=== PATIENT | female | born 1945 | race Caucasian/White ===

== ENCOUNTER → 2017-10-20 | Outpatient (CLI) | payer OTHER | LOC: FIMAGING 15:33 | PROVIDERS: ATTEND Internal Medicine | DX: Z12.31 Encounter for screening mammogram for malignant neoplasm of breast (principal) ==

== ENCOUNTER 2018-01-28 10:12 | Emergency (ER) | payer OTHER ==
--- NOTE | 2018-01-28 10:30 | CPEKG ---
Heart Rate: 159 RR Interval: 377 QRSD Interval: 66 QT Interval: 284 QTC Interval: 463 QRS [place]: 21 T Wave [place]: 38 EKG Severity - ABNORMAL ECG - EKG Impression: ATRIAL FIBRILLATION WITH RAPID V-RATE Electronically Signed By: Theresa Romero 28-Jan-2018 15:02:02
[2018-01-28] MEDS ORDERED: NS 500 ML IV ONE (10:38)
[2018-01-28] MEDS ORDERED: ASPIRIN 81 MG CHEWABLE TAB PO ONE (10:38)
--- NOTE | 2018-01-28 10:42 | EDPHY ---
H & P Time Seen by Provider: 01/28/18 10:31 HPI/ROS: CHIEF COMPLAINT: Lightheaded HISTORY OF PRESENT ILLNESS: Patient is a 72-year-old female who presents emergency department with fairly sudden onset of lightheadedness approximately 1.5 hr ago. The patient states she is walking down the hallway when she felt lightheaded. She felt as though she might faint. She describes it as"woozy. "She denies any specific dizziness although this is what she complained about in triage. No vertigo. No chest pain or shortness of breath. No abdominal pain. No nausea or vomiting. No focal weakness or numbness. No recent over- the-counter medications. She had 1 glass of wine last evening. REVIEW OF SYSTEMS: My complete review of systems is negative except as mentioned in the HPI. Past Medical/Surgical History: Includes foot surgery Social history: The patient does not smoke. She uses alcohol occasionally. Smoking Status: Never smoked Physical Exam: Vitals noted GENERAL: Well-appearing, in no acute distress, alert. HEENT: Eyes normal to inspection, normal pharynx, no signs of dehydration. NECK: No thyromegaly, no lymphadenopathy, supple. RESPIRATORY: Clear to auscultation bilaterally, no rales, rhonchi or wheezing. CVS: Regular tachycardia, no rubs, murmurs, or gallops. ABDOMEN: Soft, nontender, nondistended, no organomegaly. BACK: Normal to inspection, no CVA tenderness. SKIN: Normal color, no rash, warm, dry. No pallor. EXTREMITIES: No pedal edema, no calf tenderness, no Homans sign or cords, no joint swelling. NEURO/PSYCH: Alert and oriented x3, normal mood and affect, normal motor sensory exam. Constitutional: Initial Vital Signs Temperature (C) 36.6 C 01/28/18 10:18 Heart Rate 101 H 01/28/18 10:18 Respiratory Rate 16 01/28/18 10:18 Blood Pressure 98/80 L 01/28/18 10:18 O2 Sat (%) 93 01/28/18 10:18 O2 Delivery Mode Room Air Allergies/Adverse Reactions: iodine Allergy (Intermediate, Verified 01/28/18 10:18) Home Medications: Medication Instructions Recorded Apixaban [Eliquis] 5 mg PO BID 30 Days tab 01/28/18 Aspirin 01/28/18 Metoprolol Tartrate [Lopressor 25 25 mg PO BID 30 Days tab 01/28/18 mg (*)] Tums Ultra 01/28/18 Vitamin D3 01/28/18 Medical Decision Making - Diagnostics Imaging Results: Imaging Impressions Chest X-Ray 01/28/18 10:38 Impression: 1. No active cardiopulmonary disease seen. ED Course/Re-evaluation: In the emergency department I discussed possible etiologies patient. I reviewed her typewriter tester. She was noted to have an irregular complex tachycardia. The laboratory studies, EKG and aspirin were ordered. EKG showed atrial fibrillation at 159. Normal axis. No ST elevation. While I was in the room with the patient she converted back to sinus rhythm on the monitor. I ordered a repeat EKG. I discussed this with the patient. Repeat EKG: Sinus rhythm at 71. No ST or T-wave abnormality. CBC, chemistry and troponin were negative. TSH is pending 11 14: I discussed the case with Dr. Butts from Cardiology. He will come to the emergency department to evaluate the patient. Dr. Butts was in the emergency department to evaluate the patient. Post evaluation he recommended the patient be placed on Eliquis 5 mg orally twice daily. He recommended I write a 30 day prescription for this. He also recommended metoprolol tartrate 25 mg twice daily. He also recommended a 30 day prescription of this. Patient will be contacted by Dr. Butts is office for further treatment and evaluation. I discussed this plan with the patient. I answered all her questions. She felt comfortable. She is given warnings prior to leaving. Differential Diagnosis: My differential includes but is not limited to atrial fibrillation, atrial flutter, SVT, V-tach, electrolyte abnormality, sugar abnormality, dehydration, thyroid disease - Data Points Laboratory Results: Laboratory Results 01/28/18 10:35 01/28/18 10:35 01/28/18 01/28/18 10:35 10:35 WBC 5.65 10^3/uL 10^3/uL (3.80-9.50) RBC 4.74 10^6/uL 10^6/uL (4.18-5.33) Hgb 14.8 g/dL g/dL (12.6-16.3) Hct 44.2 % % (38.0-47.0) MCV 93.2 fL fL (81.5-99.8) MCH 31.2 pg pg (27.9-34.1) MCHC 33.5 g/dL g/dL (32.4-36.7) RDW 13.2 % % (11.5-15.2) Plt Count 237 10^3/uL 10^3/uL (150-400) MPV 10.6 fL fL (8.7-11.7) Neut % (Auto) 52.4 % % (39.3-74.2) Lymph % (Auto) 33.8 % % (15.0-45.0) [place] % (Auto) 10.8 % % (4.5-13.0) Eos % (Auto) 1.9 % % (0.6-7.6) Baso % (Auto) 0.9 % % (0.3-1.7) Nucleat RBC Rel Count 0.0 % % (0.0-0.2) Absolute Neuts (auto) 2.96 10^3/uL 10^3/uL (1.70-6.50) Absolute Lymphs (auto) 1.91 10^3/uL 10^3/uL (1.00-3.00) Absolute Monos (auto) 0.61 10^3/uL 10^3/uL (0.30-0.80) Absolute Eos (auto) 0.11 10^3/uL 10^3/uL (0.03-0.40) Absolute Basos (auto) 0.05 10^3/uL 10^3/uL (0.02-0.10) Absolute Nucleated RBC 0.00 10^3/uL 10^3/uL (0-0.01) Immature Gran % 0.2 % % (0.0-1.1) Immature Gran # 0.01 10^3/uL 10^3/uL (0.00-0.10) Sodium 142 mEq/L mEq/L (135-145) Potassium 4.3 mEq/L mEq/L (3.5-5.2) Chloride 105 mEq/L mEq/L (97-110) Carbon Dioxide 25 mEq/l mEq/l (22-31) Anion Gap 12 mEq/L mEq/L (8-16) BUN 16 mg/dL mg/dL (7-23) Creatinine 1.0 mg/dL mg/dL (0.6-1.0) Estimated GFR 54 Glucose 105 mg/dL H mg/dL (70-100) Calcium 9.5 mg/dL mg/dL (8.5-10.4) Troponin I < 0.012 ng/mL ng/mL (0.000-0.034) TSH 1.620 uIU/mL uIU/mL (0.465-4.680) Medications Given: Discontinued Medications Aspirin (Aspirin) 324 mg PO EDNOW ONE Stop: 01/28/18 10:39 Last Admin: 01/28/18 10:45 Dose: 324 mg Sodium Chloride (Ns) 500 mls @ 1,000 mls/hr IV EDNOW ONE PRN Reason: Protocol Stop: 01/28/18 11:07 Last Admin: 01/28/18 10:45 Dose: 500 mls Departure - Departure Disposition: Home, Routine, Self-Care Clinical Impression: Atrial fibrillation with rapid ventricular response Condition: Good Instructions: A-fib (Atrial Fibrillation) (ED) Additional Instructions: You are to take Eliquis 5 mg twice a day. Also take metoprolol 25 mg twice a day. You need close follow-up with Cardiology. Dr. Butts is office should call you to make an appointment. If you do not hear from him in the next 1-2 days call to make an appointment. Return with increasing dizziness, lightheadedness , chest pain, shortness of breath or any other concerns. Referrals: Dagmar Nair MD [Primary Care Provider] - 1-2 days without fail Prescriptions: Apixaban [Eliquis] 5 mg PO BID 30 Days tab Metoprolol Tartrate [Lopressor 25 mg (*)] 25 mg PO BID 30 Days tab
[2018-01-28 10:44] LABS: PLATELET COUNT 237 10^3/uL (150-400)
--- NOTE | 2018-01-28 10:44 | CPEKG ---
Heart Rate: 71 RR Interval: 845 P-R Interval: 168 QRSD Interval: 72 QT Interval: 372 QTC Interval: 405 P [place]: 32 QRS [place]: -14 T Wave [place]: 38 EKG Severity - BORDERLINE ECG - EKG Impression: SINUS RHYTHM EKG Impression: PROBABLE LEFT ATRIAL ABNORMALITY Electronically Signed By: Theresa Romero 28-Jan-2018 15:02:02
[2018-01-28 13:26] VITALS: BP 153/85
--- NOTE | 2018-01-28 14:32 | GCON ---
[f rep st] CONSULTATION CARDIOLOGY CONSULTATION DATE OF CONSULTATION: 01/28/2018 REASON FOR CONSULTATION: Atrial fibrillation. HISTORY OF PRESENT ILLNESS: The patient is a pleasant 72-year-old female [facility] an episode of lightheadedness that persisted for approximately 1-1/2 hours which was associated with some substernal chest discomfort. These symptoms are similar to episodes of lightheadedness that she has been experiencing approximately over the last 10 years. She describe s having intermittent episodes of lightheadedness while hiking or walking briskly up a flight of step s. She states episodes of lightheadedness will last 10-15 minutes and typically resolve spontaneousl y. She has denied any episodes of chest pain, shortness of breath, dyspnea, near syncope or syncope with these episodes of lightheadedness until today. She states that she has had these episodes inter mittently for the last 10 years. She did undergo a formal cardiac workup approximately 5 years ago w hich was unremarkable. Today's episode began spontaneously, and she presented to the emergency department today secondary to the fact that the symptoms were more persistent, more intense, and were associated with some mild ch est pressure. Upon arrival in the emergency department, she was found to be in atrial fibrillation w ith rapid ventricular response. Initial ECG in the emergency department demonstrated atrial fibrilla tion with rapid ventricular response at a rate of 159 beats per minute. During her initial examinati on, she was spontaneously converted back to normal sinus rhythm with a heart rate at 71 beats per min harvey with no underlying ECG changes. With amish of normal sinus rhythm, her symptoms of chest d iscomfort and lightheadedness completely resolved. At the time of my examination, she remains in sin us rhythm and resting comfortably. I do note she does have the elevated systolic pressure in the 150 s. She has no previous history of essential hypertension. PAST MEDICAL HISTORY: No significant past medical history. MEDICATIONS ON ADMISSION: Aspirin 81 mg daily. ALLERGIES: None. SOCIAL HISTORY: She lives in [place]. She is . She lives with her . She walks 2-3 m [place] a day. She is a lifelong nonsmoker. She drinks 1 glass of wine per night. FAMILY HISTORY: Her mother had a history of atrial fibrillation and a pacemaker. Her father had apryl e underlying coronary artery disease. No siblings with atrial fibrillation. PHYSICAL EXAMINATION: VITAL SIGNS: Blood pressure 153/85, heart rate of 75 in sinus rhythm, respira tory rate of 16, oxygen saturation 95% on room air. GENERAL: She is awake, alert, oriented, appropr iate. No apparent distress. NECK: There is no evidence of JVP or carotid bruits. LUNGS: Clear to auscultation bilaterally. CARDIAC: S1, S2. Regular rate and rhythm. No murmurs, rubs, or gallops . ABDOMEN: Soft, nontender, nondistended. There is no pulsatile mass or abdominal bruit. DATA REVIEWED: White blood cell count 5.65, hemoglobin 14.8, hematocrit 44.2, platelet count 237. S odium 142, potassium 4.3, chloride 105, bicarb 25, BUN 16, creatinine 1, glucose 105. Troponin less than 0.012. TSH 1.620. Chest x-ray demonstrates no evidence of cardiopulmonary process. Followup ECG at 10:38 demonstrates normal sinus rhythm at 71 beats per minute, with left axis deviati on and borderline poor R-wave progression. IMPRESSION: 1. New onset atrial fibrillation. 2. Possible new onset essential hypertension. 3. Mild chest discomfort with onset of atrial fibrillation with rapid ventricular response. The patient is a pleasant 72-year-old female with atrial fibrillation with rapid ventricular response at 159 beats per minute. Her history suggests that she has had probably brief paroxysms of atrial f ibrillation for the last 10 years. CHADS-VASc is 2. She is an appropriate candidate for anticoagula tion based on her age, weight, and renal function. Would recommend Eliquis 5 mg p.o. b.i.d. With el evated blood pressure, would recommend metoprolol tartrate 25 mg p.o. b.i.d. In the setting of chest symptoms and borderline abnormal ECG, would recommend exercise nuclear stress test and complete 2D echocardiogram to be done at [facility] this week. PLAN: 1. Initiate Eliquis 5 mg p.o. b.i.d. 2. Initiate metoprolol tartrate 25 mg p.o. b.i.d. 3. Arrange for outpatient exercise nuclear stress test to be performed at [facility] later this w [place]. 4. Complete 2D echocardiogram to be performed at [facility] later this week. 5. Arrange for overnight oximetry study to be performed at home through [facility]. 6. Arrange for followup visit with me in the office after completion of the above workup. I have answered all of the patient's and her 's questions. She will be given a 1-month prescr iption for both Eliquis and metoprolol. /[id number]/MODL
[2018-01-28] MEDS ORDERED: APIXABAN 5 MG TAB PO SCH (21:00)
== END 2018-01-28 13:46 | disposition home or self-care (01) ==
DX: I48.91 Unspecified atrial fibrillation (principal); E86.9 Volume depletion, unspecified; Z79.82 Long term (current) use of aspirin

== ENCOUNTER → 2018-02-04 | Outpatient (CLI) | payer OTHER | LOC: BHFA 08:30 | PROVIDERS: ATTEND Internal Medicine Cardiovascular Disease | DX: I48.91 Unspecified atrial fibrillation (principal) | CPT/HCPCS: 78452; 93017; A9500 ==

== ENCOUNTER 2018-02-10 06:27 | Observation (INO) | payer OTHER ==
--- NOTE | 2018-02-10 06:37 | CPEKG ---
Heart Rate: 61 RR Interval: 984 P-R Interval: 160 QRSD Interval: 78 QT Interval: 408 QTC Interval: 411 P [place]: 46 QRS [place]: 20 T Wave [place]: 53 EKG Severity - ABNORMAL ECG - EKG Impression: SINUS RHYTHM EKG Impression: CONSIDER LEFT VENTRICULAR HYPERTROPHY Electronically Signed By: Ubaldo Benavides 10-Feb-2018 08:20:50
[2018-02-10 06:56] LABS: PLATELET COUNT 238 10^3/uL (150-400)
--- NOTE | 2018-02-10 07:07 | EDPHY ---
H & P Time Seen by Provider: 02/10/18 07:02 HPI/ROS: Chief complaint. Chest pain HPI. Patient is a 72-year-old female presents emergency department with 4-5 day history of left anterior chest discomfort. She describes pulses of sharp left anterior chest discomfort that lasts 1 sec. She is asymptomatic in between episodes. She has had 3-4 episodes today. There is no radiation of her discomfort. No shortness of breath. No precipitating factors and her symptoms are not worse with exertion or breathing or movement. She notes that they occur most often when she is relaxed either watching television or in bed. She has had no fever cough. No unusual leg pain or swelling. The patient was seen in the emergency department on January 28 for atrial fibrillation. She had an abnormal nuclear stress test and is working on scheduling an angiogram which likely is scheduled for next week. She has no symptoms now. ROS Constitutional. no fever/chills, no weakness Eyes. no problems with vision ENT. no sore throat, no nasal drainage Cardiovascular. Left anterior sharp chest discomfort Respiratory. no shortness of breath, no cough Abdominal. no abdominal pain, no nausea/vomiting, no diarrhea . no problems urinating MS. no calf pain/swelling, no neck/back pain, no joint pain Skin. no rash Lymph. no swollen glands Neuro. no headache, no dizziness, no difficulty walking or with speech Past Medical/Surgical History: Past medical history is significant for atrial fibrillation and foot surgery Social History: Patient is , nonsmoker, no recent alcohol Smoking Status: Never smoked Physical Exam: General Appearance: Alert well-developed female mild distress vital signs are stable Eyes: Pupils equal and round no pallor or injection. ENT, Mouth: Mucous membranes are moist. Respiratory: There are no retractions, lungs are clear to auscultation. Cardiovascular: Regular rate and rhythm. Gastrointestinal: Abdomen is soft and nontender, no masses, bowel sounds normal. Neurological: Awake and alert, sensory and motor exams grossly normal. Skin: Warm and dry, no rashes. Musculoskeletal: Neck is supple nontender. Extremities symmetrical, full range of motion. Psychiatric: Patient is oriented X 3, there is no agitation. Constitutional: Initial Vital Signs Temperature (C) 36.9 C 02/10/18 06:35 Heart Rate 62 02/10/18 06:35 Respiratory Rate 18 02/10/18 06:35 Blood Pressure 178/101 H 05/15/18 06:35 O2 Sat (%) 94 02/10/18 06:35 O2 Delivery Mode Room Air Allergies/Adverse Reactions: iodine Allergy (Intermediate, Verified 01/28/18 10:18) Home Medications: Medication Instructions Recorded Apixaban [Eliquis] 5 mg PO BID 30 Days tab 01/28/18 Aspirin 01/28/18 Metoprolol Tartrate [Lopressor 25 25 mg PO BID 30 Days tab 01/28/18 mg (*)] Tums Ultra 01/28/18 Vitamin D3 01/28/18 Medical Decision Making - Diagnostics EKG Interpretation: EKG interpreted by me shows normal sinus rhythm with normal interval and axis. QRS is normal there is no significant ST elevation or depression. No arrhythmia. The rate is 61. EKG is not changed from previous EKG on January 28 which showed the patient to be in normal sinus rhythm Imaging Results: Chest x-rays interpreted by me is normal Procedures: IV normal saline, monitor ED Course/Re-evaluation: Re-evaluation at 7:30 a.m.. Patient is without symptoms and is stable. The patient, her , and I discussed EKG, imaging, laboratory evaluation. 7:40 a.m. I consulted and discussed the case with Dr. Espinal from Cardiology who was going to try to arrange an angiogram this morning. The patient is NPO. Dr. Espinal called me back at 7:50 a.m.. She would like the patient admitted do CBC for cardiac angiogram this morning. I have discussed this with patient and her . They expressed understanding and agreement. The patient and wanted me to make sure that Dr. Espinal was aware that the patient had taken her Eliquis last night. This is conveyed to Dr. Espinal. Differential Diagnosis: I have considered acute coronary syndrome, arrhythmia, anxiety, muscular skeletal. This is certainly atypical chest discomfort. - Data Points Laboratory Results: Laboratory Results 02/10/18 06:40 02/10/18 06:40 02/10/18 02/10/18 06:40 06:40 WBC 5.20 10^3/uL 10^3/uL (3.80-9.50) RBC 4.63 10^6/uL 10^6/uL (4.18-5.33) Hgb 14.6 g/dL g/dL (12.6-16.3) Hct 43.9 % % (38.0-47.0) MCV 94.8 fL fL (81.5-99.8) MCH 31.5 pg pg (27.9-34.1) MCHC 33.3 g/dL g/dL (32.4-36.7) RDW 13.0 % % (11.5-15.2) Plt Count 238 10^3/uL 10^3/uL (150-400) MPV 10.8 fL fL (8.7-11.7) Neut % (Auto) 50.6 % % (39.3-74.2) Lymph % (Auto) 37.1 % % (15.0-45.0) [place] % (Auto) 9.0 % % (4.5-13.0) Eos % (Auto) 1.9 % % (0.6-7.6) Baso % (Auto) 1.2 % % (0.3-1.7) Nucleat RBC Rel Count 0.0 % % (0.0-0.2) Absolute Neuts (auto) 2.63 10^3/uL 10^3/uL (1.70-6.50) Absolute Lymphs (auto) 1.93 10^3/uL 10^3/uL (1.00-3.00) Absolute Monos (auto) 0.47 10^3/uL 10^3/uL (0.30-0.80) Absolute Eos (auto) 0.10 10^3/uL 10^3/uL (0.03-0.40) Absolute Basos (auto) 0.06 10^3/uL 10^3/uL (0.02-0.10) Absolute Nucleated RBC 0.00 10^3/uL 10^3/uL (0-0.01) Immature Gran % 0.2 % % (0.0-1.1) Immature Gran # 0.01 10^3/uL 10^3/uL (0.00-0.10) Sodium 144 mEq/L mEq/L (135-145) Potassium 4.1 mEq/L mEq/L (3.3-5.0) Chloride 105 mEq/L mEq/L (97-110) Carbon Dioxide 30 mEq/l mEq/l (22-31) Anion Gap 9 mEq/L mEq/L (8-16) BUN 18 mg/dL mg/dL (7-23) Creatinine 1.0 mg/dL mg/dL (0.6-1.0) Estimated GFR 54 Glucose 91 mg/dL mg/dL (70-100) Calcium 9.2 mg/dL mg/dL (8.5-10.4) Troponin I < 0.012 ng/mL ng/mL (0.000-0.034) Departure - Departure Disposition: [facility] Acute Clinical Impression: Chest pain Qualifiers: Chest pain type: unspecified Qualified Code(s): R07.9 - Chest pain, unspecified Condition: Good Referrals: Dagmar Nair MD [Primary Care Provider] - As per Instructions
[2018-02-10 08:08] LABS: INR 1.24 (0.83-1.16); PROTIME(PATIENT) 15.8 SEC (12.0-15.0)
[2018-02-10] MEDS ORDERED: LIDOCAINE 1% 300 MG/30 ML SDV ONE (08:33)
[2018-02-10] MEDS ORDERED: HEPARIN 10,000 UNIT/10 ML MDV (1,000 UNIT/ML) ONE (08:34)
[2018-02-10] MEDS ORDERED: MIDAZOLAM 2 MG/2 ML VIAL ONE (08:34)
[2018-02-10] MEDS ORDERED: VERAPAMIL 5 MG/2 ML VIAL ONE (08:34)
[2018-02-10] MEDS ORDERED: fentaNYL 100 MCG/2 ML INJ ONE (08:34)
[2018-02-10] MEDS ORDERED: IOPAMIDOL (ISOVUE-370) 150 ML BTL IV ONE (08:35)
[2018-02-10] MEDS ORDERED: FAMOTIDINE 20 MG/NACL/50 ML BAG IV ONE (09:40)
[2018-02-10] MEDS ORDERED: methylPREDNISolone SOD SUCC 125 MG/2 ML VIAL ONE (09:40)
--- NOTE | 2018-02-10 09:43 | PDPROPOC ---
Sedation Plan of Care Sedation Plan of Care: vital signs stable, mental status noted, patient educated of risks, benefits, alternatives, patient can tolerate sedation ASA Classification: ASA 3 Planned drugs: fentanyl, midazolam Mallampati Score: Class 3 Mallampati Reference Image: Patient passed 3-3-2 rule?: Yes
--- NOTE | 2018-02-10 09:43 | PDHPUP ---
History & Physical Update H&P update statement: This history and physical update is based on an assessment of the patient which was completed after admission or registration (within 24 hours), but prior to the surgery/procedure. H&P update: H&P reviewed & patient examined, no change in patient's condition since H&P completed H&P changes: The patient has an abnormal nuclear stress test considered intermediate risk and chest discomfort at rest consistent with CCS class IV symptoms of angina... she took Eliquis last night and also has iodine allergy.
--- NOTE | 2018-02-10 10:23 | PDDXCAT ---
Diagnostic Cath Note - . Date: 02/10/18 [employer] Operator: Christian Indication: CCC Class III and IV angina on medical treatment, High-risk criteria on noninvasive testing (choose option below) High-risk criteria on non-invasive testing: high-risk treadmill score (score<=- 11) - Procedure Access: left wrist Procedure: left heart catheterization, coronary angiography, left ventriculogram - Materials Left Heart Cath size: 5F Left Heart Cath materials: JL3.5, JL4.0, pigtail - Findings-Left Heart Catheterization LM: It is 5mm in size. It bifurcates into an LAD and circumflex system. MARY III flow. LAD: It is 3 to 3.5 mm in size. It gives rise to two important branches. Compared to the RCA and LCX it is a relatively small vessel after the diagonal takeoff. LCX: The LCX is 3.5-4 mm in size. It is free of flow limiting disease. MARY III flow. RCA: The RCA is dominant. It is 3.5mm in size. There is no evidence of flow limiting obstruction. MARY III flow throughout. EDP: The LVEDP is 15 mmHg. LVEF: The EF is 65% Wall motion: On the LV gram there is normal LV systolic function. The EF is 65% . There are no resting segmental wall motion abnormalities. The visualized portion of the thoracic aortic valce reveals three sinuses of valsalva most consistent with a trileaflet valve. There is no gradient on pullback across the aortic valve. There is no evidence of priyanka dissection or aneurysm formation. Complications: NONE. Estimated blood loss: <50ml Closure method: TR Band Assessment: Tortuosity likely secondary to age, female gender and hypertension. No significant coronary obstruction or disease. The patient does have significant hypertension and also had intermittent atrial fibrillation with rapid ventricular response during the cath. Plan: The patient has significant systemic hypertension as well as intermittent paroxysmal atrial fibrillation. She will need to be treated with full dose anticoagulation [facility] as her CHADS VASC score is 3 on the basis of age, female gender and hypertension. (Soon to be 4 when she turns 73.) Her blood pressure also needs to be controlled for a goal systolic pressure of less than 130 mmHg. She responded well to Intravascular Calcium channel pina so that may be a good place to start as well as to control the speed of her atrial fibrillation when it occurs. Intervention: NONE. Patient Problems: Problems Problem Status Onset Chest pain Acute
[2018-02-10] MEDS ORDERED: ONDANSETRON 4 MG/2 ML VIAL IVP PRN (11:00)
[2018-02-10] MEDS ORDERED: NITROGLYCERIN 0.4 MG BTL SL PRN (11:00)
[2018-02-10] MEDS ORDERED: HYDROCODONE/APAP 5/325 TAB PO PRN (11:00)
[2018-02-10] MEDS ORDERED: OXYCODONE/APAP 5/325 TAB PO PRN (11:00)
[2018-02-10] MEDS ORDERED: ATROPINE SULFATE 1 MG/10 ML SYR IVP PRN (11:00)
[2018-02-10] MEDS ORDERED: NS 1,000 ML IV SCH (12:45)
[2018-02-10] MEDS: DILTIAZEM CD 180 MG CAP PO SCH (17:12)
[2018-02-10] MEDS: IRBESARTAN 150 MG TAB PO SCH (17:13)
[2018-02-10] MEDS ORDERED: CHOLECALCIFEROL VIT D3 2,000 UNITS TAB/CAP PO SCH (19:00)
[2018-02-10] MEDS ORDERED: CALCIUM CARBONATE 500 MG CHEWABLE TAB PO SCH (19:00)
[2018-02-11] MEDS: DILTIAZEM CD 180 MG CAP PO SCH (08:29)
[2018-02-11] MEDS: IRBESARTAN 150 MG TAB PO SCH (08:29)
[2018-02-11 11:04] VITALS: BP 125/70
--- NOTE | 2018-02-11 13:49 | ASMTCMCOM ---
CM Note CM Note Notes: Chart reviewed for discharge planning purposes.Patient s/p angiogram with wrist approach. No coronary intervention. No current needs identified at this time. Case management to follow. Plan: Likely home no needs Date Signed: 02/11/2018 01:48 PM Electronically Signed By:Maria Isabel Castillo RN
[2018-02-11] MEDS ORDERED: APIXABAN 5 MG TAB PO SCH (19:00)
--- NOTE | 2018-02-11 23:49 | GDS ---
[f rep st] DISCHARGE SUMMARY ADMITTING DIAGNOSES: 1. Chest pain with recent abnormal nuclear stress test. 2. Paroxysmal atrial fibrillation. 3. Hypertension. DISCHARGE DIAGNOSES: 1. Hypertension, well controlled. 2. Paroxysmal atrial fibrillation, none in the last 24 hours. 3. No evidence of flow-limiting coronary disease in spite of abnormal nuclear stress test. COMPLICATIONS: None. HISTORY OF PRESENT ILLNESS: For detailed history of present illness, please see the recently dictate d H and P. Briefly, the patient is a 72-year-old female who presented to the emergency department wi complaints of palpitations and was cared for under the care of my partner, Dr. Adan Butts. The pa jamarcus ultimately was cardioverted and underwent further assessment with a nuclear stress test, which was reportedly abnormal. The patient was slated for an angiogram under the care of Dr. Butts but had recurrent chest discomfort that was concerning for ischemia. The patient presented to the hospital o n the morning of 02/10/2018, with complaints of chest discomfort, pressure, and tightness. She was c oncerned and, therefore, Dr. Maldonado contacted Dr. Laurie Espinal who was on-call in the [employer] [place] that morning and recommended that the patient proceed with cardiac catheterization as opposed to w aiting a week or so to have it performed with Dr. Butts. HOSPITAL COURSE: The patient was admitted from the emergency department to the [facility] and underwent suc cessful cardiac catheterization from a left wrist approach. During the cardiac catheterization, it w as proven that patient does not have evidence of flow-limiting obstruction, dissection, or thrombus. The LV function is normal. There is no evidence of significant mitral regurgitation or aortic steno sis upon pullback across the aortic valve. The patient did have significant systemic hypertension du ring the procedure and also was noted to have intermittent brief episodes of atrial fibrillation with ventricular rates in the 180s. For this reason, we decided to try to treat the patient's systemic h ypertension. I elected to use irbesartan at a dose of 150 along with Cardizem, specifically diltiaze m CD at 180 mg daily. The patient was observed overnight and is noted to have good blood pressure co ntrol on the present regimen. The patient will be discharged to home on Cardizem 180 CD formulation to help control the speed of atrial fibrillation should that occur. Patient will also be discharged on irbesartan 150, which seems to be controlling her blood pressure quite nicely. We will discontinu e the metoprolol as she does not have evidence of significant coronary disease or LV dysfunction. He r apixaban will be resumed tomorrow evening as long as there are no bleeding complications at the [facility] st. At the time of her discharge from the hospital, the patient is medically stable and ready for di scharge to home. Her most recent blood pressure is 125/70. Her heart rhythm on the telemetry monito r again reveals sinus rhythm without evidence of significant tachy or samantha dysrhythmia including atr ial fibrillation over the last 24 hours. The patient feels well, is ambulatory and able to take p.o. and ambulate without assistance. She is ready to be discharged in good and stable condition from [facility]. A discharge plan with the patient has been formulated with the patient. She will follow up with Dr. Butts or his nurse sometime in the next week. Copy requested to: Santa Kemp /[id number]/CARRIL
== END 2018-02-11 16:27 | disposition home or self-care (01) ==
LOC: FCATH 07:45 → F2W 12:34
PROVIDERS: ADMIT Internal Medicine Cardiovascular Disease; ATTEND Internal Medicine Cardiovascular Disease
DX: R07.89 Other chest pain (principal); I48.0 Paroxysmal atrial fibrillation; I10 Essential (primary) hypertension
CPT/HCPCS: 71046; 93005; 93458; 99285; C1769; G0378; J1200; J1644; J2250; J2930; J3010; Q9967

== ENCOUNTER → 2018-02-17 | Outpatient (CLI) | payer OTHER | LOC: BHFA 08:30 | PROVIDERS: ATTEND Internal Medicine Cardiovascular Disease | DX: I48.91 Unspecified atrial fibrillation (principal) ==

== ENCOUNTER 2018-03-10 00:35 | Emergency (ER) | payer OTHER ==
--- NOTE | 2018-03-11 05:07 | EDPHY ---
H & P Time Seen by Provider: 03/10/18 04:00 HPI/ROS: [facility] CHIEF COMPLAINT: Adrenalin Rushes HISTORY OF PRESENT ILLNESS very pleasant 72-year-old female, history of atrial fibrillation on Eliquis, presents emergency room stating that for the past few weeks she has been having intermittent adrenaline rushes. Patient states when she tries to go to sleep at night she at times feels very flushed and feels like her blood pressure is getting elevated she takes her blood pressure gets readings 160s to 170 systolic. Denies any chest pain or shortness of breath denies any palpitations. Patient reports that she has had this few times over the past 2 weeks occurring mainly at night when she goes to sleep he is unable to get to sleep and feels very flushed. She denies any diaphoresis denies chest pain. Denies recent illness. She was recently diagnosed with AFib Past Medical History: Atrial fibrillation Past Surgical History: Coronary artery catheterization reported to me by her that is normal no coronary artery disease. No stents. Social History: Denies drugs alcohol tobacco. Family History: Noncontributory ROS REVIEW OF SYSTEMS: A comprehensive 10 point review of systems is otherwise negative aside from elements mentioned in the history of present illness. Exam Constitutional appears well nontoxic no acute distress, triage nursing summary reviewed, vital signs reviewed, awake/alert. Eyes normal conjunctivae and sclera, EOMI, PERRLA. HENT normal inspection, atraumatic, moist mucus membranes, no epistaxis, neck supple/ no meningismus, no raccoon eyes. Respiratory clear to auscultation bilaterally, normal breath sounds, no respiratory distress, no wheezing. Cardiovascular rate normal, regular rhythm, no murmur, no edema, distal pulses normal. Gastrointestinal soft, non-tender, no rebound, no guarding, normal bowel sounds, no distension, no pulsatile mass. Genitourinary no CVA tenderness. Musculoskeletal no midline vertebral tenderness, full range of motion, no calf swelling, no tenderness of extremities, no meningismus, good pulses, neurovascularly intact. Skin pink, warm, & dry, no rash, skin atraumatic. Neurologic awake, alert and oriented x 3, AAOx3, moves all 4 extremities equally, motor intact, sensory intact, CN II-XII intact, normal cerebellar, normal vision, normal speech. Psychiatric normal mood/affect. Heme/Lymph/Immune no lymphadenopathy. Differential Diagnosis: Includes but is not limited to in a particular order electrolyte disturbance, cardiac arrhythmia, AFib with RVR, acute coronary syndrome, thyroid dysfunction, anxiety, panic attack Medical Decision Making: Plan for this patient IV establishment full campus monitor, obtain blood work, troponin, EKG, TSH and electrolytes. Re-evaluation: EKG interpretation by me on record in [employer] system. Impression time of EKG 1:04 a.m., sinus rhythm rate of 61 no signs of acute ischemia or cardiac arrhythmia. Troponin to be 0.01 0336AM: Patient resting comfortably no acute distress. I did review her blood work, she has a normal urinalysis her CBC is unremarkable with a normal H&H and no elevated white count no left shift. Chemistry panel is unremarkable. TSH is pending. 0440AM: Patient resting comfortably no acute distress stable vital signs. Patient's blood work has been reviewed she has a negative urinalysis, normal chemistry, negative troponin, normal TSH. Patient is eager to be discharged. Her EKG is unremarkable. Discussed return precautions with her she understands return emergency room if develops chest pain, shortness of breath, fever, vomiting or not feeling well. I do recommend she follows up with primary care doctor. Source: Patient - Medical/Surgical History Hx Asthma: No Hx Chronic Respiratory Disease: No Hx Diabetes: No Hx Cardiac Disease: No Hx Renal Disease: No Hx Cirrhosis: No Hx Alcoholism: No Hx HIV/AIDS: No Hx Splenectomy or Spleen Trauma: No Other PMH: R foot surgery, afib - Social History Smoking Status: Never smoked Allergies/Adverse Reactions: iodine Allergy (Intermediate, Verified 01/28/18 10:18) Home Medications: Medication Instructions Recorded Calcium Carbonate [Tums 500MG (*)] 500 mg PO DAILY@01/28/18 Cholecalciferol Vit D3 [Vitamin D3 2,000 units PO DAILY@01/28/18 2000 units tab (OTC)] Apixaban [Eliquis] 5 mg PO BID@,02/10/18 Diltiazem Cd [Cardizem ER Q24hr] 180 mg PO DAILY #90 cap 02/11/18 Irbesartan [Avapro 150 mg (*)] 150 mg PO DAILY #90 tab 02/11/18 Departure - Departure Disposition: Home, Routine, Self-Care Clinical Impression: Anxiety Condition: Good Instructions: Anxiety (ED) Referrals: NONE *PRIMARY CARE P,. [Primary Care Provider] - As per Instructions
[2018-03-11 05:20] VITALS: BP 143/89
--- NOTE | 2018-03-11 14:56 | EDPHY ---
[facility] Patient Name: BAYLEE ROMAN Rpt#: [id number] Unit Number: [id number] ER Physician: Mayank Cárdenas MD Patient Type: REG ER Adm Date/Source: 03/10/18 EMR Discharge Date: Primary Carrier: MEDICARE OUTPATIENT EMERGENCY DEPARTMENT PROVIDER REPORT H P Time Seen by Provider: 03/10/18 07:22 HPI/ROS: HPI CHIEF COMPLAINT: Adrenalin Rushes HISTORY OF PRESENT ILLNESS very pleasant 72-year-old female, history of atrial fibrillation on Eliquis, presents emergency room stating that for the past few weeks she has been having intermittent adrenaline rushes. Patient states when she tries to go to sleep at night she at times feels very flushed and feels like her blood pressure is getting elevated she takes her blood pressure gets readings 160s to 170 systolic. Denies any chest pain or shortness of breath denies any palpitations. Patient reports that she has had this few times over the past 2 weeks occurring mainly at night when she goes to sleep he is unable to get to sleep and feels very flushed. She denies any diaphoresis denies chest pain. Denies recent illness. She was recently diagnosed with AFib Past Medical History: Atrial fibrillation Past Surgical History: Coronary artery catheterization reported to me by her that is normal no coronary artery disease. No stents. Social History: Denies drugs alcohol tobacco. Family History: Noncontributory ROS REVIEW OF SYSTEMS: A comprehensive 10 point review of systems is otherwise negative aside from elements mentioned in the history of present illness. Exam Constitutional appears well nontoxic no acute distress, triage nursing summary reviewed, vital signs reviewed, awake/alert. Eyes normal conjunctivae and sclera, EOMI, PERRLA. HENT normal inspection, atraumatic, moist mucus membranes, no epistaxis, neck supple/ no meningismus, no raccoon eyes. Respiratory clear to auscultation bilaterally, normal breath sounds, no respiratory distress, no wheezing. Cardiovascular rate normal, regular rhythm, no murmur, no edema, distal pulses normal. Gastrointestinal soft, non-tender, no rebound, no guarding, normal bowel sounds, no distension, no pulsatile mass. Genitourinary no CVA tenderness. Musculoskeletal no midline vertebral tenderness, full range of motion, no calf swelling, no tenderness of extremities, no meningismus, good pulses, neurovascularly intact. Skin pink, warm, dry, no rash, skin atraumatic. Neurologic awake, alert and oriented x 3, AAOx3, moves all 4 extremities equally, motor intact, sensory intact, CN II-XII intact, normal cerebellar, normal vision, normal speech. Psychiatric normal mood/affect. Heme/Lymph/Immune no lymphadenopathy. 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 Re-evaluation: EKG interpretation by me on record in [employer] system. Impression time of EKG 1:04 a.m., sinus rhythm rate of 61 no signs of acute ischemia or cardiac arrhythmia. Troponin to be 0.01 0336AM: Patient resting comfortably no acute distress. I did review her blood work, she has a normal urinalysis her CBC is unremarkable with a normal H H and no elevated white count no left shift. Chemistry panel is unremarkable. TSH is pending. 0440AM: Patient resting comfortably no acute distress stable vital signs. Patient's blood work has been reviewed she has a negative urinalysis, normal chemistry, negative troponin, normal TSH. Patient is eager to be discharged. Her EKG is unremarkable. Discussed return precautions with her she understands return emergency room if develops chest pain, shortness of breath, fever, vomiting or not feeling well. I do recommend she follows up with primary care doctor. Source: Patient - Medical/Surgical History Hx Asthma: No Hx Chronic Respiratory Disease: No Hx Diabetes: No Hx Cardiac Disease: No Hx Renal Disease: No Hx Cirrhosis: No Hx Alcoholism: No Hx HIV/AIDS: No Hx Splenectomy or Spleen Trauma: No Other PMH: R foot surgery, afib - Social History Smoking Status: Never smoked Allergies/Adverse Reactions: iodine Allergy (Intermediate, Verified 01/28/18 10:18) Home Medications: Medication Instructions Recorded Calcium Carbonate [Tums 500MG (*)] 500 mg PO DAILY@01/28/18 Cholecalciferol Vit D3 [Vitamin D3 2,000 units PO DAILY@01/28/18 2000 units tab (OTC)] Apixaban [Eliquis] 5 mg PO BID@07,02/10/18 Diltiazem Cd [Cardizem ER Q24hr] 180 mg PO DAILY #90 cap 02/11/18 Irbesartan [Avapro 150 mg (*)] 150 mg PO DAILY #90 tab 02/11/18 Medical Decision Making - Data Points Laboratory Results: Laboratory Results 03/10/18 01:05 03/10/18 03/10/18 03/10/18 01:05 01:05 01:05 WBC RBC Hgb Hct MCV MCH MCHC RDW Plt Count MPV Neut % (Auto) Lymph % (Auto) Barnes % (Auto) Eos % (Auto) Baso % (Auto) Nucleat RBC Rel Count Absolute Neuts (auto) Absolute Lymphs (auto) Absolute Monos (auto) Absolute Eos (auto) Absolute Basos (auto) Absolute Nucleated RBC Immature Gran % Immature Gran # PT 16.1 SEC H SEC (12.0-15.0) INR 1.27 H (0.83-1.16) APTT 32.7 SEC SEC (23.0-38.0) Sodium 142 mEq/L mEq/L (135-145) Potassium 4.4 mEq/L mEq/L (3.3-5.0) Chloride 106 mEq/L mEq/L (97-110) Carbon Dioxide 25 mEq/l mEq/l (22-31) Anion Gap 11 mEq/L mEq/L (8-16) BUN 19 mg/dL mg/dL (7-23) Creatinine 1.0 mg/dL mg/dL (0.6-1.0) Estimated GFR Not Reported Glucose 112 mg/dL H mg/dL (70-100) Calcium 9.5 mg/dL mg/dL (8.5-10.4) TSH 1.590 uIU/mL uIU/mL (0.465-4.680) Urine Color PALE YELLOW Urine Appearance CLEAR Urine pH 7.0 (5.0-7.5) Ur Specific [place] 1.003 (1.002-1.030) Urine Protein NEGATIVE (NEGATIVE) Urine Ketones NEGATIVE (NEGATIVE) Urine Blood NEGATIVE (NEGATIVE) Urine Nitrate NEGATIVE (NEGATIVE) Urine Bilirubin NEGATIVE (NEGATIVE) Urine Urobilinogen NEGATIVE EU EU (0.2-1.0) Ur Leukocyte Esterase NEGATIVE (NEGATIVE) Urine Glucose NEGATIVE (NEGATIVE) 03/10/18 01:05 WBC Pending RBC Pending Hgb Pending Hct Pending MCV Pending MCH Pending MCHC Pending RDW Pending Plt Count Pending MPV Pending Neut % (Auto) Pending Lymph % (Auto) Pending Barnes % (Auto) Pending Eos % (Auto) Pending Baso % (Auto) Pending Nucleat RBC Rel Count Pending Absolute Neuts (auto) Pending Absolute Lymphs (auto) Pending Absolute Monos (auto) Pending Absolute Eos (auto) Pending Absolute Basos (auto) Pending Absolute Nucleated RBC Pending Immature Gran % Pending Immature Gran # Pending PT INR APTT Sodium Potassium Chloride Carbon Dioxide Anion Gap BUN Creatinine Estimated GFR Glucose Calcium TSH Urine Color Urine Appearance Urine pH Ur Specific [place] Urine Protein Urine Ketones Urine Blood Urine Nitrate Urine Bilirubin Urine Urobilinogen Ur Leukocyte Esterase Urine Glucose Departure - Departure Disposition: Home, Routine, Self-Care Clinical Impression: Palpitations Condition: Good Instructions: Heart Palpitations (ED), Anxiety (ED) Referrals: NONE *PRIMARY CARE P,. [Primary Care Provider] - As per Instructions *This report may have been compiled using a voice recognition system, and might contain typographical errors and blanks.* Mayank Cárdenas MD 03/10/18 0748 <Electronically signed by Mayank Cárdenas MD> 1 T: ALLYSON 03/10/18741 CC: NONE *PRIMARY CARE PHYS ONLY*
[2018-03-12 13:04] LABS: PLATELET COUNT 218 10^3/uL (150-400)
[2018-03-12 13:06] LABS: INR 1.27 (0.83-1.16); PROTIME(PATIENT) 16.1 SEC (12.0-15.0)
== END 2018-03-10 05:10 | disposition home or self-care (01) ==
DX: R00.2 Palpitations (principal)
CPT/HCPCS: 84484-PO